=== PATIENT | female | born 1955 | race Caucasian/White ===

== ENCOUNTER 2016-10-07 18:55 | Emergency (ER) | payer SELFPAY ==
[2016-10-02 19:32] VITALS: BP 145/83
--- NOTE | 2016-10-07 20:09 | ED Physician Documentation ---
General Adult - HISTORIAN Historian: patient - HPI Stated Complaint: Past 2 days, chest congestion/sinus drainage/body aches Chief Complaint: General Adult Additional Information: 2 days non-productive cough, rhinorrhea, feverish, body aches. Got flu shot about a week ago. - ROS CONST: fever (feverish) - PAST HX Past History: COPD Allergies/Adverse Reactions: Allergies Allergy/AdvReac Type Severity Reaction Status Date / Time morphine Allergy Severe Anaphylaxis Verified 10/07/16 19:33 Home Medications: Ambulatory Orders Medication Instructions Recorded Ramipril [Altace] 10 mg PO BID 11/24/14 - SOCIAL HX Smoking History: non-smoker, secondhand - FAMILY HX Family History: No - VITAL SIGNS Vital Signs: Vital Signs Temp Pulse Resp BP Pulse Ox 98.2 F 79 20 145/83 97 10/07/16 18:55 10/07/16 18:55 10/07/16 18:55 10/02/16 19:10 10/07/16 18:55 - REVIEWED ASSESSMENTS Nursing Assessment Reviewed: Yes Vitals Reviewed: Yes Progress - Progress Progress: Chest PA and lateral views Clinical history: Cough and congestion with fever A borderline heart shadow. No acute infiltrates or pleural effusion. Normal bony thorax. Impression: Borderline heart shadow No acute infiltrates or pleural effusion Electronically signed on Oct 07, 2016 8:33:31 PM GUIDANCE SERVICES COORDINATOR by: Jese Bain Influenza swab negative ED Results Lab/Radiology - Orders Orders: ED Orders Category Date Time Status CHEST 2 VIEW [CHEST P.A.&LAT 2 VIEWS] [RAD] Stat Exams 10/07/16 Ordered INFLUENZA A&B Stat Lab 10/07/16 19:59 Ordered General Adult Physical Exam - PHYSICAL EXAM GENERAL APPEARANCE: moderate distress EENT: eye inspection normal, ENT inspection normal, pharynx normal, JYOTHI, other (clear rhinorrhea) NECK: normal inspection, supple RESPIRATORY: no resp distress, breath sounds normal CVS: reg rate & rhythm, heart sounds normal ABDOMEN: soft, normal bowel sounds RECTAL: deferred BACK: normal inspection SKIN: warm/dry, normal color EXTREMITIES: normal range of motion, no evidence of injury NEURO: CN's nml as tested, motor nml, sensation nml, cognition normal Discharge Clincal Impression: Bronchitis Referrals: Jese Moreno [Primary Care Provider] - 2 Days Home Medications: Ambulatory Orders Ramipril [Altace] 10 mg PO BID 11/24/14 Condition: Fair Disposition: 01 HOME, SELF-CARE Decision to Admit: NO Decision Time: 21:00
--- NOTE | 2016-10-07 20:41 | Diagnostic Imaging Report ---
[facility] [address] [facility].[address] [address] ~ ~ ~ ~ Report Submission Date: Oct 07, 2016 8:33:31 PM SCRIPT DEVELOPER Patient ~ Study Name: JAN MODI ~ Date: Oct 07, 2016 8:22:11 PM SCRIPT DEVELOPER ~ Modality Type: CR Gender: F ~ Description: CHEST : 53 ~ Institution: [facility] Physician: MARITZA COTTON ~ ~ ~ ~ Chest PA and lateral views Clinical history: Cough and congestion with fever A borderline heart shadow. No acute infiltrates or pleural effusion. Normal bony thorax. Impression: Borderline heart shadow No acute infiltrates or pleural effusion ~ Electronically signed on Oct 07, 2016 8:33:31 PM SCRIPT DEVELOPER by: Jese MEDINA
[2016-10-07] MEDS: AZITHROMYCIN 250 MG TABLET PO ONE (21:05)
[2016-10-07] MEDS: predniSONE 10 MG TABLET PO ONE (21:05)
== END 2016-10-07 21:10 | disposition home or self-care (01) ==
LOC: ED 18:55
DX: J20.9 Acute bronchitis, unspecified (principal)
CPT/HCPCS: 71020; 87400; 99283; J7512

== ENCOUNTER 2016-11-18 16:08 | Emergency (ER) | payer SELFPAY ==
[2016-11-18] MEDS ORDERED: KETOROLAC TROMETHAMINE 60 MG/2 ML VIAL IM ONE (16:27)
--- NOTE | 2016-11-18 16:30 | ED Physician Documentation ---
General Adult - HISTORIAN Historian: patient - HPI Stated Complaint: left hip pain Chief Complaint: General Adult Further Comments: yes (61 year old female patient presents with left hip pain for the past 2 days, denies any fall or injury. States she took Tylenol yesterday but it didn't help.) - ROS CONST: no problems EYES/ENT: none CVS/RESP: none GI/: none MS/SKIN/LYMPH: joint pain (left hip) - PAST HX Past History: COPD, hypertension Allergies/Adverse Reactions: Allergies Allergy/AdvReac Type Severity Reaction Status Date / Time morphine Allergy Severe Anaphylaxis Verified 10/07/16 19:33 Home Medications: Ambulatory Orders Medication Instructions Recorded Unobtainable [Unobtainable] 11/18/16 - SOCIAL HX Smoking History: non-smoker - FAMILY HX Family History: No - VITAL SIGNS Vital Signs: Vital Signs Temp Pulse Resp BP Pulse Ox 98.1 F 80 16 134/85 97 11/18/16 16:10 11/18/16 16:10 11/18/16 16:10 11/18/16 16:10 11/18/16 16:10 - REVIEWED ASSESSMENTS Nursing Assessment Reviewed: Yes Vitals Reviewed: Yes ED Results Lab/Radiology - Orders Orders: ED Orders Category Date Time Status Ketorolac Tromethamine [Toradol] Med 11/18/16 16:27 Once 60 mg IM NOW ONE General Adult Physical Exam - PHYSICAL EXAM GENERAL APPEARANCE: mild distress EENT: eye inspection normal, JYOTHI RESPIRATORY: no resp distress, chest non-tender, breath sounds normal CVS: reg rate & rhythm, heart sounds normal, equal pulses, no murmur, no gallop , PMI nml, no JVD, no friction rub, 24 ABDOMEN: soft, no organomegaly, normal bowel sounds, no abdominal bruit, no distension SKIN: normal color, warm/dry, NR, INT, PAL, DR EXTREMITIES: normal range of motion, no evidence of injury, no edema, other ( left hip pain with palpation, patient states it radiates down the left leg. No shortening or rotation noted. ) NEURO: oriented X3, CN's nml as tested, motor nml, sensation nml, mood/affect nml Discharge Clincal Impression: Sciatica Qualifiers: Laterality: left Qualified Code(s): M54.32 - Sciatica, left side Referrals: Jese Moreno [Primary Care Provider] - 2 Days Home Medications: Ambulatory Orders Unobtainable [Unobtainable] 11/18/16 Condition: Stable Disposition: 01 HOME, SELF-CARE Decision to Admit: NO Decision Time: 16:31
[2016-11-18 16:52] VITALS: BP 134/85
== END 2016-11-18 16:50 | disposition home or self-care (01) ==
LOC: ED 16:08
DX: M54.32 Sciatica, left side (principal)
CPT/HCPCS: 96372; 99283; J1885

== ENCOUNTER 2017-02-04 17:38 | Emergency (ER) | payer OTHER ==
--- NOTE | 2017-02-04 18:16 | ED Physician Documentation ---
General Adult - HISTORIAN Historian: patient, child (son) - HPI Stated Complaint: hip pain Chief Complaint: General Adult Additional Information: Left hip pain for months. Recently had x-rays per Dr. Moreno. Pt's son received letter in mail that said x-rays showed arthritis. When son called Tiffanie's office he was told no doctors in the office and to bring pt to ER. Pain is unchanged. Denies numbness, tingling, loss of bowel or bladder control. - ROS CONST: no problems - PAST HX Past History: hypertension Allergies/Adverse Reactions: Allergies Allergy/AdvReac Type Severity Reaction Status Date / Time morphine Allergy Severe Anaphylaxis Verified 02/04/17 17:57 Home Medications: Ambulatory Orders Medication Instructions Recorded Ramipril [Altace] 10 mg PO BID 11/18/16 predniSONE [Deltasone] 20 mg PO QD #7 tablet 02/04/17 - SOCIAL HX Smoking History: cigarettes - FAMILY HX Family History: No - VITAL SIGNS Vital Signs: Vital Signs Temp Pulse Resp BP Pulse Ox 98.1 F 95 H 16 121/78 99 02/04/17 17:39 02/04/17 17:39 02/04/17 17:39 02/04/17 17:39 02/04/17 17:39 - REVIEWED ASSESSMENTS Nursing Assessment Reviewed: Yes Vitals Reviewed: Yes Progress - Progress Progress: Make an appointment with your provider to see how he would like to treat your arthritis. General Adult Physical Exam - PHYSICAL EXAM GENERAL APPEARANCE: mild distress EENT: eye inspection normal, ENT inspection normal NECK: normal inspection RESPIRATORY: no resp distress BACK: normal inspection SKIN: warm/dry, normal color EXTREMITIES: no evidence of injury, no edema, other (left hip rotation w/o pain) NEURO: CN's nml as tested, motor nml, sensation nml, other (reflexes 2+ throughout. Can plantar and dorsi flex toes against resistance) Discharge Clincal Impression: Sciatica Prescriptions: predniSONE [Deltasone] 20 mg PO QD #7 tablet Home Medications: Ambulatory Orders Ramipril [Altace] 10 mg PO BID 11/18/16 predniSONE [Deltasone] 20 mg PO QD #7 tablet 02/04/17 Condition: Good Disposition: 01 HOME, SELF-CARE Decision to Admit: NO Decision Time: 18:14
[2017-02-04 18:19] VITALS: BP 120/80
== END 2017-02-04 18:14 | disposition home or self-care (01) ==
LOC: ED 17:38
DX: M54.32 Sciatica, left side (principal)
CPT/HCPCS: 99283

== ENCOUNTER 2017-02-10 18:34 | Emergency (ER) | payer OTHER ==
[2017-02-10] MEDS: ORPHENADRINE CITRATE 60 MG/2ML IM ONE (19:58)
[2017-02-10] MEDS: KETOROLAC TROMETHAMINE 60 MG/2 ML VIAL IM ONE (19:59)
[2017-02-10 20:32] VITALS: BP 134/72
[2017-02-11 05:51] LABS: APPEARANCE,URINE CLEAR (CLEAR); COLOR,URINE YELLOW (YELLOW); OCCULT BLOOD,URINE NEGATIVE (NEGATIVE); UROBILINOGEN URINE 0.2 Eu (0.2-1.0)
--- NOTE | 2017-02-11 12:24 | ED Physician Documentation ---
Headache - HISTORIAN Historian: patient - HPI Stated Complaint: headache Chief Complaint: Headache Additional Information: rush and increased freq of urination Onset: hours Timing: still present New Gradual Onset: No Exposure To: none Severity: moderate Quality: similar to previous, other (whole head) Associated Symptoms: denies: problems with vision, sensitivity to light, nausea , vomiting, speech problems Preceding Symptoms: denies: visual disturbance Further Comments: no Last known Well Code/Unknown Code: Unknown - ROS NEURO/PSYCH: denies: confusion, anxiety, depression, fainting EYES/ENT: denies: sore throat, difficulty swallowing, sinus pain, drainage CVS/RESP: none GI/: problems urinating (burning). denies: abdominal pain, diarrhea, incontinence MS/SKIN/LYMPH: denies: muscle aches, back pain, rash, skin lesions, swollen glands all systems neg except as marked: Yes - PAST HX Medical History: hypertension Surgical History: no surgical history Immunizations: referred to PCP Allergies/Adverse Reactions: Allergies Allergy/AdvReac Type Severity Reaction Status Date / Time morphine Allergy Severe Anaphylaxis Verified 02/10/17 19:05 Home Medications: Ambulatory Orders Medication Instructions Recorded Ramipril [Altace] 10 mg PO BID 11/18/16 - SOCIAL HX Smoking History: cigarettes Alcohol Use: none - Family HX Family History: none - VITAL SIGNS Vital Signs: Vital Signs Temp Pulse Resp BP Pulse Ox 98.4 F 76 18 134/72 97 02/10/17 20:31 02/10/17 20:31 02/10/17 20:31 02/10/17 20:31 02/10/17 20:31 - REVIEWED ASSESSMENTS Nursing Assessment Reviewed: Yes Vitals Reviewed: Yes Progress - Results/Orders Results/Orders: no testing ordered - Progress Progress: pt. given 60 mg toradol and 60 mg norflex im in er Critical Care Note - Critical Care Note Total Time (mins): 0 ED Results Lab/Radiology - Lab Results Lab Results: Lab Results 02/10/17 19:50 Urine Color Yellow (YELLOW) Urine Appearance Clear (CLEAR) Urine pH 7.0 (5.0 - 8.0) Ur Specific He[place]rick 1.010 (1.010-1.030) Urine Protein Negative mg/dL mg/dL (NEGATIVE) Urine Ketones Negative mg/dL mg/dL (NEGATIVE) Urine Occult Blood Negative (NEGATIVE) Urine Nitrite Negative (NEGATIVE) Urine Bilirubin Negative (NEGATIVE) Urine Urobilinogen 0.2 Eu Eu (0.2-1.0) Ur Leukocyte Esterase Negative (NEGATIVE) Urine Glucose Trace mg/dL mg/dL (NEGATIVE) - Radiology Radiology Impressions: no x-rays ordered - Orders Orders: ED Orders Category Date Time Status UA MACRO DIP ONLY Routine Lab 02/10/17 19:50 Completed Ketorolac Tromethamine [Toradol] Med 02/10/17 19:52 Discontinued 60 mg IM NOW ONE Orphenadrine Citrate [Norflex] Med 02/10/17 19:52 Discontinued 60 mg IM NOW ONE Headache Physical Exam - EXAM General Appearance: alert, mild distress EENT: no facial swelling, eyes nml inspection, PERRL, unequal pupils, nml ENT. No: tender temporal artery, pain over sinuses, photophobia Neck: normal inspection, thyroid normal, supple Respiratory: no resp distress, chest non-tender, breath sounds normal CVS: reg. rate & rhythm, heart sounds nml. No: murmur, tachycardia, bradycardia , decreased pulse(s) Abdomen: non-tender, no organomegaly, nml bowel sounds Skin: color nml, no rash Extremitites: non-tender, normal range of motion, no evidence of injury, no edema - NEURO/PSYCH Higher Functions: alert, oriented x3 Cranial: nml as tested, no evidence of acute CVA Cerebellar: nml as tested Sensorimotor: motor nml, sensation nml Discharge Clincal Impression: Tension headache Diabetes Qualifiers: Diabetes mellitus type: type 2 Diabetes mellitus complication status: with unspecified complications Diabetes mellitus long chain beamer insulin use: without [place] [facility] use Qualified Code(s): E11.8 - Type 2 diabetes mellitus with unspecified complications Referrals: Jese Moreno [Primary Care Provider] - 2 Days Home Medications: Ambulatory Orders Ramipril [Altace] 10 mg PO BID 11/18/16 Comments: discharged with scripts for parafon forte, meloxicam and recommendation to follow up with primary care for better diabetes control Condition: Stable Disposition: 01 HOME, SELF-CARE Decision to Admit: NO Decision Time: 20:25
== END 2017-02-10 20:12 | disposition home or self-care (01) ==
LOC: ED 18:34
DX: R51 Headache (principal); E11.8 Type 2 diabetes mellitus with unspecified complications
CPT/HCPCS: 81002; J1885; J2360; 96372; 99283

== ENCOUNTER 2017-03-16 09:45 | Emergency (ER) | payer OTHER ==
[2017-03-16] MEDS ORDERED: IPRATROPIUM/ALBUTEROL SULFATE 3 ML AMPUL.NEB NEB ONE ×4 (09:51→10:27)
[2017-03-16] MEDS ORDERED: methylPREDNISolone SOD SUCC 125 MG/2 ML VIAL ONE (10:22)
[2017-03-16] MEDS ORDERED: methylPREDNISolone SOD SUCC 125 MG/2 ML VIAL IVP ONE (10:28)
[2017-03-16] MEDS ORDERED: ASPIRIN 81 MG CHEW TAB PO ONE (10:48)
[2017-03-16 10:59] LABS: BASOPHILS % 0.7 (0.0-1.5); EOSINOPHILS % 7.3 % (0.0-6.8); MEAN CORPUSCULAR HEMOGLOBIN 29.9 pg (28.0-34.0); MEAN CORPUSCULAR VOLUME 90.5 fl (80.0-100.0); NEUTROPHILS # 3.2 # k/uL (1.4-7.7)
[2017-03-16 11:11] LABS: eGFR (African) > 60; eGFR (Non-African) > 60
--- NOTE | 2017-03-16 12:25 | ED Physician Documentation ---
Chest Pain - HISTORIAN Historian: patient, child - HPI Stated Complaint: chest pain and shortness of breath Chief Complaint: Chest Pain Additional Information: pt here w/son c/o sob and chest discomfort onset on arising this am. had recent card w/u at [facility] found ok. Timing: sudden onset Duration: waxing, waning Last known Well Date: 03/14/17 Last Known Well Time: 18:30 Severity: moderate Quality: pressure, other (sob and wheezing) Chest Pain Radiation: no radiation Chest Pain Signs/Symptoms: dyspnea. denies: nausea, vomiting, diaphoresis, cool extremities Worsened By: exertion - ROS CONST: no problems GI/: none EYES/ENT: none SKIN/ENDO: none NEURO/PSYCH: none - PAST HX MA risk factors: hypertension, other (copd hi cholesterol) Neuro deficit: none GI disease: none Surgeries/Procedures: none Allergies/Adverse Reactions: Allergies Allergy/AdvReac Type Severity Reaction Status Date / Time morphine Allergy Severe Anaphylaxis Verified 03/16/17 10:15 Home Medications: Ambulatory Orders Medication Instructions Recorded Ramipril [Altace] 10 mg PO BID 11/18/16 - SOCIAL HX Smoking History: non-smoker (lived w/ cigarette smoke long time) Alcohol Use: none Drug Use: none - FAMILY HX Family HX: none - VITAL SIGNS Vital Signs: Vital Signs Temp Pulse Resp BP Pulse Ox 134/72 02/10/17 20:31 - REVIEWED ASSESSMENTS Nursing Assessment Reviewed: Yes Vitals Reviewed: Yes ED Results Lab/Radiology - Radiology Radiology Impressions: POSS RLL CONGESTION-RAD SAYS INFILTRATE - Orders Orders: ED Orders Category Date Time Status Ipratropium/Albuterol Sulfate [Duoneb] Med 03/16/17 09:51 Discontinued 3 ml NEB .STK-MED ONE Ipratropium/Albuterol Sulfate [Duoneb] Med 03/16/17 10:22 Discontinued 3 ml NEB .STK-MED ONE Ipratropium/Albuterol Sulfate [Duoneb] Med 03/16/17 10:27 Once 3 ml NEB NOW ONE Ipratropium/Albuterol Sulfate [Duoneb] Med 03/16/17 10:27 Once 3 ml NEB NOW ONE methylPREDNISolone SOD SUCC [Solu-MEDROL] Med 03/16/17 10:22 Discontinued 125 mg .ROUTE .STK-MED ONE methylPREDNISolone SOD SUCC [Solu-MEDROL] Med 03/16/17 10:28 Once 125 mg IVP NOW ONE Chest Pain Physical Exam - EXAM General Appearance: mild distress, moderate distress EENT: eye inspection normal Neck: nml inspection, no carotid bruit Respiratory: No: no resp. distress (mild sig wheezing) CVS: reg. rate & rhythm, no murmur, no gallop, no friction rub Abdomen: soft, non-tender Skin: warm/dry, normal color. No: cyanosis, diaphoresis, jaundice Extremities: non-tender, normal range of motion, no evidence of injury Neuro: oriented X3, motor nml, sensation nml, mood/affect nml Discharge Clincal Impression: Right lower lobe pneumonia, ASSOC COPD Referrals: Jese Moreno [Primary Care Provider] - 2 Days Home Medications: Ambulatory Orders Ramipril [Altace] 10 mg PO BID 11/18/16 Comments: TO F/U W/PCP SAMIRA KIM Condition: Good Disposition: 01 HOME, SELF-CARE Decision to Admit: NO Decision Time: 12:24
[2017-03-16 12:59] VITALS: BP 161/90
--- NOTE | 2017-03-16 20:52 | Diagnostic Imaging Report ---
MARGY GUERRERO [facility] [address] [facility].[address] [address] Report Submission Date: Mar 16, 2017 11:37:13 AM CDT Patient Study Name: JAN MODI Date: Mar 16, 2017 11:20:07 AM CDT Modality Type: CR Gender: F Description: CHEST : 53 Institution: [facility] Physician: MARGY GUERRERO Chest - two views Clinical history: Chest pain and shortness of breath this morning. Findings: Examination of the chest in PA and lateral views with comparison to examination of 10/07/2016 demonstrates again slight elevation right hemidiaphragm. There is patchy right basilar infiltrate medially. The left lung is clear. Cardiovascular and mediastinal silhouettes are stable. The aorta is atherosclerotic. Impression: 1. Elevated right hemidiaphragm with right basilar infiltrate in the medial base. Follow-up to resolution is recommended. 2. Aortic atherosclerosis. Electronically signed on Mar 16, 2017 11:37:13 AM CDT by: Vijay MEDINA
== END 2017-03-16 12:56 | disposition home or self-care (01) ==
LOC: ED 09:45
DX: J18.9 Pneumonia, unspecified organism (principal); J44.1 Chronic obstructive pulmonary disease with (acute) exacerbation
CPT/HCPCS: 36415; 71020; 80053; 84484; 85025; 87040; 93005; J2930; 96374; 99283; 99284; S1016

== ENCOUNTER 2017-03-16 17:26 | Emergency (ER) | payer OTHER ==
--- NOTE | 2017-03-16 19:39 | ED Physician Documentation ---
Dyspnea - HISTORIAN Historian: patient, child - HPI Chief Complaint: Dyspnea Additional Information: re adm ed today inc dyspnea tachycardia and tachypnea w/ant/post chest pain Onset: other (on awakening this am slight yesterday) Duration: continues in ED, worse (from this am w/tachycardia and tachypnea), other Initiating Event: upper respiratory illness, exposure to smoke (excess cigarette smoke) Severity: moderate, severe Exacerbated By: change in position, exertion, coughing Associated Symptoms: chest pain, chest discomfort, heart racing. denies: bloody cough, productive cough - ROS CONST: no problems GI/: none MS/SKIN/LYMPH: none - PAST HX Lung Disease: COPD, other (htn hi chol) PE Risk Factors: hypertension Surgeries/Procedures: none Allergies/Adverse Reactions: Allergies Allergy/AdvReac Type Severity Reaction Status Date / Time morphine Allergy Severe Anaphylaxis Verified 03/16/17 12:53 Home Medications: Ambulatory Orders Medication Instructions Recorded Ramipril [Altace] 10 mg PO BID 11/18/16 Azithromycin 500 mg PO D #5 tablet 03/16/17 - SOCIAL HX Smoking History: non-smoker Alcohol Use: none Drug Use: none - FAMILY HX Family History: no significant history - VITAL SIGNS Vital Signs: Vital Signs Temp Pulse Resp BP Pulse Ox 161/90 03/16/17 12:56 ED Results Lab/Radiology - Radiology Radiology Impressions: ct reveals bronchitis other lab ok pt noble her azithro but has not taken any yet. will give her one now send home - Orders Orders: ED Orders Category Date Time Status CT CHEST W & W/O CONTRAST Stat Exams 03/16/17 Ordered ARTERIAL BLOOD GAS Stat Lab 03/16/17 Uncollected EKG WITH COMPARISON Stat Ther 03/16/17 Ordered Dyspnea Physical Exam - EXAM General Appearance: moderate distress EENT: eye inspection normal Respiratory: wheezes, no pleuritic chest pain Abdomen: non-tender, no distention Skin: cyanosis (very slight) Extremities: non-tender, normal range of motion Neuro/Psych: oriented x3, motor nml, sensation nml, mood/affect nml Discharge Clincal Impression: acute bronchiotis, anxiety Referrals: Jese Moreno [Primary Care Provider] - 2 Days Home Medications: Ambulatory Orders Ramipril [Altace] 10 mg PO BID 11/18/16 Azithromycin 500 mg PO D #5 tablet 03/16/17 Comments: pt sig better admits has not yet taken her azithro--will give here have her f/u w;/pcp or rt ed Condition: Good Disposition: 01 HOME, SELF-CARE Decision to Admit: NO Decision Time: 19:38
[2017-03-16] MEDS ORDERED: AZITHROMYCIN 250 MG TABLET PO ONE (19:54)
[2017-03-16] MEDS: AZITHROMYCIN 250 MG TABLET PO ONE (19:55)
[2017-03-16 20:07] VITALS: BP 161/84
--- NOTE | 2017-03-16 20:39 | Diagnostic Imaging Report ---
MARGY GUERRERO [facility] [address] [facility] [address] [address] Report Submission Date: Mar 16, 2017 7:29:59 PM CDT Patient Study Name: JAN MODI Date: Mar 16, 2017 7:02:43 PM CDT Modality Type: CT\SR Gender: F Description: CT ANGIOGRAPHY CHEST 7 : 53 Institution: [facility] Physician: MARGY GUERRERO Computed tomography of the chest with contrast History: Chest pain and shortness of breath Findings: Transverse chest sections are obtained after 92 mL intravenous omnipaque 350 from which multiplanar reformatted images are obtained. Marked hepatic steatosis, calcified splenic and chest granulomas, marked gallbladder contraction, mild atherosclerotic calcification and obesity are observed. There is no evidence of acute pulmonary embolism. Minimal bibasilar atelectasis is present. There is no confluent infiltrate or pleural effusion. Minimal bilateral predominately basilar bronchial wall thickening may represent mild bronchitis. This is associated with air trapping. Impression: 1. Mild air trapping and bibasilar bronchitis. 2. No evidence of acute pulmonary embolism. 3. Obesity and marked hepatic steatosis. 4. Mild atherosclerosis, old granulomatous disease, and minimal bibasilar atelectasis. Electronically signed on Mar 16, 2017 7:29:59 PM CDT by: Jossue MEDINA
== END 2017-03-16 19:55 | disposition home or self-care (01) ==
LOC: ED 17:26
DX: J21.9 Acute bronchiolitis, unspecified (principal); F41.9 Anxiety disorder, unspecified
CPT/HCPCS: 71275; Q9966; 99283; S1016

== ENCOUNTER 2017-04-11 21:20 | Emergency (ER) | payer OTHER ==
[2017-04-11 21:35] VITALS: BP 136/84
[2017-04-11] MEDS ORDERED: ACETAMINOPHEN 500 MG TABLET PO ONE (21:35)
--- NOTE | 2017-04-11 21:44 | ED Physician Documentation ---
Headache - HISTORIAN Historian: patient - HPI Stated Complaint: HBP Chief Complaint: Headache Onset: hours Timing: still present New Gradual Onset: No Exposure To: none Severity: moderate Quality: pain Associated Symptoms: dizziness. denies: fever, chills, sweating, problems with vision, sensitivity to light, nausea, vomiting, neck pain, stiffness, speech problems, weakness, trouble walking, tingling, numbness, light-headedness, other Preceding Symptoms: denies: visual disturbance Further Comments: yes (61 year old female patient presents with complaint of headache and high BP. Patient reports taking ibuprofen this afternoon with no improvement. Patient was in the ER earlier today with her . States she did not have a headache at that time. Denies nausea, photophobia, fever or CP. C/O dizziness.) - ROS NEURO/PSYCH: denies: confusion, anxiety, depression, fainting, other EYES/ENT: denies: sore throat, difficulty swallowing, sinus pain, drainage, other CVS/RESP: none GI/: denies: abdominal pain, diarrhea, problems urinating, incontinence, other MS/SKIN/LYMPH: denies: muscle aches, back pain, rash, skin lesions, swollen glands, other all systems neg except as marked: Yes - PAST HX Medical History: hypertension Allergies/Adverse Reactions: Allergies Allergy/AdvReac Type Severity Reaction Status Date / Time morphine Allergy Severe Anaphylaxis Verified 03/16/17 12:53 Home Medications: Ambulatory Orders Medication Instructions Recorded Ramipril [Altace] 10 mg PO BID 11/18/16 Ibuprofen [Advil] 800 mg PO TID 04/11/17 - SOCIAL HX Smoking History: cigarettes - Family HX Family History: denies: none - VITAL SIGNS Vital Signs: Vital Signs Temp Pulse Resp BP Pulse Ox 98.9 F 92 H 16 136/84 98 04/11/17 21:23 04/11/17 21:23 04/11/17 21:23 04/11/17 21:23 04/11/17 21:23 - REVIEWED ASSESSMENTS Nursing Assessment Reviewed: Yes Vitals Reviewed: Yes ED Results Lab/Radiology - Orders Orders: ED Orders Category Date Time Status Acetaminophen [Tylenol Extra Strength] Med 04/11/17 21:35 Once 1,000 mg PO NOW ONE Headache Physical Exam - EXAM General Appearance: no acute distress, alert, other (very poor personal hygiene) Respiratory: no resp distress, chest non-tender, breath sounds normal CVS: reg. rate & rhythm, heart sounds nml Abdomen: non-tender, no organomegaly, nml bowel sounds, no distention Skin: color nml, no rash, warm, nml palp., dry Extremitites: non-tender, normal range of motion, no evidence of injury, no edema, J, PROCESSING TECHNOLOGIST - NEURO/PSYCH Higher Functions: alert, oriented x3, nml speech, mood/affect nml Discharge Clincal Impression: Tension headache Referrals: Jese Moreno [Primary Care Provider] - 2 Days Home Medications: Ambulatory Orders Ramipril [Altace] 10 mg PO BID 11/18/16 Ibuprofen [Advil] 800 mg PO TID 04/11/17 Condition: Stable Disposition: 01 HOME, SELF-CARE Decision to Admit: NO Decision Time: 21:43
== END 2017-04-11 21:39 | disposition home or self-care (01) ==
LOC: ED 21:20
DX: G44.209 Tension-type headache, unspecified, not intractable (principal)
CPT/HCPCS: 99283

== ENCOUNTER 2017-04-29 15:27 | Emergency (ER) | payer OTHER ==
[2017-04-29 17:39] LABS: BASOPHILS % 0.2 (0.0-1.5); EOSINOPHILS % 0.4 % (0.0-6.8); MEAN CORPUSCULAR HEMOGLOBIN 30.1 pg (28.0-34.0); MONOCYTES % 1.7 % (0.0-11.0)
[2017-04-29 17:57] LABS: eGFR (African) > 60; eGFR (Non-African) > 60
--- NOTE | 2017-04-29 19:13 | Diagnostic Imaging Report ---
ANTONY BOSWELL [facility] [address] [facility]. [address] [place], [place]. [address] Report Submission Date: Apr 29, 2017 6:17:58 PM CDT Patient Study Name: JAN MODI Date: Apr 29, 2017 5:52:14 PM CDT Modality Type: CR Gender: F Description: CHEST : 53 Institution: [facility] Physician: ANTONY BOSWELL Chest -one view CLINICAL HISTORY: Fever. FINDINGS: Examination of the chest single PA view with comparison to examination 2016 demonstrates cardiomegaly and aortic atherosclerosis. Monitor leads superimpose the chest. Bony thorax is intact. Lungs are free of coalescent infiltrate. IMPRESSION: Cardiomegaly and aortic atherosclerosis. No active disease. Electronically signed on Apr 29, 2017 6:17:58 PM CDT by: Vijay MEDINA
--- NOTE | 2017-04-29 19:15 | Diagnostic Imaging Report ---
ANTONY BOSWELL [facility] [address] [facility].[address] [address] Report Submission Date: Apr 29, 2017 6:16:50 PM CDT Patient Study Name: JAN MODI Date: Apr 29, 2017 5:41:39 PM CDT Modality Type: CR Gender: F Description: SPINE : 53 Institution: [facility] Physician: ANTONY BOSWELL Cervical spine -three views CLINICAL HISTORY: Numbness in the hands. FINDINGS: Examination of the lumbar spine in AP, lateral, lateral swimmer's and open- mouth views demonstrates straightening of the normal cervical lordosis. Disc spaces are narrowed at C4-5, C5-6 and C6-7 with anterior and posterior osteophytes consistent with degenerative disc disease. Prevertebral soft tissues are within normal limits. The C1-2 articulation is normal and the base the odontoid is intact. IMPRESSION: Multilevel spondylosis. No fracture. Electronically signed on Apr 29, 2017 6:16:50 PM CDT by: Vijay MEDINA
--- NOTE | 2017-04-29 19:15 | Diagnostic Imaging Report ---
ANTONY BOSWELL [facility] [address] [facility].[address] [address] Report Submission Date: Apr 29, 2017 6:15:43 PM CDT Patient Study Name: JAN MODI Date: Apr 29, 2017 5:31:08 PM CDT Modality Type: CR Gender: F Description: SPINE : 53 Institution: [facility] Physician: ANTONY BOSWELL Lumbar spine -three views CLINICAL HISTORY: Low back pain with leg numbness. FINDINGS: Examination of the lumbar spine in AP, lateral and lateral coned-down views demonstrates mild levoscoliosis with the apex at L2. The pedicles are intact and paravertebral soft tissues are within normal limits. Facet joints are narrowed in the mid and lower lumbar vertebrae. There is no evident fracture. Vascular calcification is incidentally noted in the abdominal aorta. IMPRESSION: Lumbar spondylosis and scoliosis. No fracture. Electronically signed on Apr 29, 2017 6:15:43 PM CDT by: Vijay MEDINA
[2017-04-29] MEDS: Lidocaine 1% 5ml(IM or SUTURE)(PAIN CLINIC) IJ ONE (19:20)
[2017-04-29] MEDS: cefTRIAXone SODIUM 1 GM VIAL IM ONE (19:20)
--- NOTE | 2017-04-29 19:21 | ED Physician Documentation ---
General Adult - HISTORIAN Historian: patient - HPI Stated Complaint: Numbness to bilateral hands and legs Chief Complaint: General Adult Additional Information: numbness hands and feet Onset: hours (8) Timing: still present Severity: moderate Modifying Factors: none Context: woke up this way Quality: moderate Location: hands and feet Further Comments: no Last known Well Date: 04/28/17 Last Known Well Time: 23:55 Last known Well Code/Unknown Code: Unknown - ROS CONST: no problems EYES/ENT: none CVS/RESP: none GI/: none MS/SKIN/LYMPH: none NEURO/PSYCH: denies: headache, fainting, dizziness, tingling, numbness, difficulty walking, difficulty with speech, anxiety, depression - PAST HX Past History: hypertension Other History: none Surgeries/Procedures: none Immunizations: referred to PCP Allergies/Adverse Reactions: Allergies Allergy/AdvReac Type Severity Reaction Status Date / Time morphine Allergy Severe Anaphylaxis Verified 04/29/17 17:45 Home Medications: Ambulatory Orders Medication Instructions Recorded Ramipril [Altace] 10 mg PO BID 11/18/16 Ibuprofen [Advil] 800 mg PO TID 04/11/17 - SOCIAL HX Smoking History: cigarettes Alcohol Use: none Drug Use: none - FAMILY HX Family History: No - VITAL SIGNS Vital Signs: Vital Signs Temp Pulse Resp BP Pulse Ox 99.8 F H 99 H 20 131/57 97 04/29/17 15:28 04/29/17 15:28 04/29/17 15:28 04/29/17 15:28 04/29/17 15:28 - REVIEWED ASSESSMENTS Nursing Assessment Reviewed: Yes Vitals Reviewed: Yes Progress - Results/Orders Results/Orders: cbc, cmp, ua, cxr, blood culturesd, c-spine and l-spine x-rays ordered - Progress Progress: pt. given 1 gram rocephin im in er Critical Care Note - Critical Care Note Total Time (mins): 0 ED Results Lab/Radiology - Lab Results Lab Results: Lab Results 04/29/17 04/29/17 17:20 17:20 WBC 8.10 K/ul K/ul (4.00-12.00) RBC 4.72 M/ul M/ul (3.90-5.20) Hgb 14.2 g/dL g/dL (12.0-16.0) Hct 42.5 % % (34.5-46.5) MCV 90.0 fl fl (80.0-100.0) MCH 30.1 pg pg (28.0-34.0) MCHC 33.4 g/dL g/dL (30.0-36.0) RDW 13.2 % % (11.3-14.3) Plt Count 258 K/mm3 K/mm3 (130-400) Neut % (Auto) 86.4 % H % (39.0-79.0) Lymph % (Auto) 10.8 % L % (16.0-50.0) Cotton % (Auto) 1.7 % % (0.0-11.0) Eos % (Auto) 0.4 % % (0.0-6.8) Baso % (Auto) 0.2 (0.0-1.5) Neut # (Auto) 7.0 # k/uL # k/uL (1.4-7.7) Lymph # (Auto) 0.9 # k/uL # k/uL (0.6-4.0) [place] # (Auto) 0.1 # k/uL # k/uL (0.0-0.9) Eos # (Auto) 0.0 # k/uL # k/uL (0.0-0.6) Baso # (Auto) 0.0 # k/uL # k/uL (0.0-0.5) Reactive Lymphs % 0.6 % % (0.0-5.0) Reactive Lymphs # 0.0 # k/uL # k/uL (0.0-0.8) Sodium 138 mmol/L mmol/L (136-145) Potassium 4.0 mmol/L mmol/L (3.5-5.0) Chloride 104 mmol/L mmol/L (98-110) Carbon Dioxide 28 mmol/L mmol/L (20-32) BUN 12 mg/dL mg/dL (10-26) Creatinine 0.8 mg/dL mg/dL (0.4-1.5) Estimated Creat Clear 138 Est GFR ( Amer) > 60 (60 - ) Est GFR (Non-Af Amer) > 60 (60 - ) Glucose 127 mg/dL H mg/dL (70-99) Calcium 9.5 mg/dL mg/dL (8.5-10.5) Total Bilirubin 0.3 mg/dL mg/dL (0.2-1.2) AST 25 U/L U/L (0-41) ALT 24 U/L U/L (0-45) Alkaline Phosphatase 76 U/L U/L (46-116) Total Protein 7.5 g/dL g/dL (6.0-8.5) Albumin 4.5 g/dL g/dL (3.0-5.5) - Radiology Radiology Impressions: cxr neg, c-spine shows ddd, l-spine shows ddd - Orders Orders: ED Orders Category Date Time Status Place IV Lock 1T Care 04/29/17 16:13 Active C SPINE 2 OR 3 VIEWS [RAD] Stat Exams 04/29/17 Completed CHEST 1 VIEW [RAD] Routine Exams 04/29/17 Completed L SPINE 2 OR 3 VIEWS [RAD] Stat Exams 04/29/17 Completed BLOOD CULTURE Routine Lab 04/29/17 17:25 Received CBC/PLATELET/DIFF Routine Lab 04/29/17 17:20 Completed CMP Routine Lab 04/29/17 17:20 Completed URINALYSIS Routine Lab 04/29/17 16:06 Ordered Lidocaine 1% 5ml(IM or SUTURE) [Xylocaine] Med 04/29/17 19:03 Discontinued 50 mg IJ NOW ONE cefTRIAXone SODIUM [Rocephin] Med 04/29/17 19:03 Discontinued 1 gm IM NOW ONE General Adult Physical Exam - PHYSICAL EXAM GENERAL APPEARANCE: mild distress EENT: eye inspection normal, ENT inspection normal, pharynx normal, no signs of dehydration, JYOTHI, no nystagmus, TM's nml NECK: normal inspection, thyroid normal, supple RESPIRATORY: no resp distress, chest non-tender CVS: reg rate & rhythm, heart sounds normal, equal pulses, no murmur, no gallop ABDOMEN: soft, no organomegaly, normal bowel sounds, no distension, tenderness ( suprapubic area) BACK: CVA tenderness (L) SKIN: warm/dry, normal color EXTREMITIES: non-tender, normal range of motion NEURO: oriented X3, CN's nml as tested, motor nml, sensation nml, mood/affect nml, cognition normal Discharge Clincal Impression: Urinary tract infection Qualifiers: Urinary tract infection type: acute cystitis Hematuria presence: without hematuria Qualified Code(s): N30.00 - Acute cystitis without hematuria Referrals: Jese Moreno [Primary Care Provider] - 2 Days Home Medications: Ambulatory Orders Ramipril [Altace] 10 mg PO BID 11/18/16 Ibuprofen [Advil] 800 mg PO TID 04/11/17 Comments: Discharged in stable condition with Bactrim DS 1 p.o. bid #14 script. Condition: Stable Disposition: 01 HOME, SELF-CARE Decision to Admit: NO Decision Time: 19:20
[2017-04-29 20:07] VITALS: BP 132/93
[2017-04-30 05:44] LABS: APPEARANCE,URINE CLEAR (CLEAR); COLOR,URINE YELLOW (YELLOW); OCCULT BLOOD,URINE NEGATIVE (NEGATIVE); PH URINE 7.5 (5.0 - 8.0); UROBILINOGEN URINE 0.2 Eu (0.2-1.0)
== END 2017-04-29 19:30 | disposition home or self-care (01) ==
LOC: ED 15:27
DX: N30.00 Acute cystitis without hematuria (principal)
CPT/HCPCS: 36415; 71010; 72040; 72100; 80053; 81002; 85025; 87040; J0696; 96372; 99283; S1016

== ENCOUNTER 2017-05-13 20:02 | Emergency (ER) | payer OTHER ==
[2017-05-13] MEDS ORDERED: 0.9 % SODIUM CHLORIDE 1,000 ML IV ONE (21:27)
[2017-05-13] MEDS: KETOROLAC TROMETHAMINE 30 MG/1ML VIAL IVP ONE (21:32)
[2017-05-13] MEDS: IPRATROPIUM/ALBUTEROL SULFATE 3 ML AMPUL.NEB NEB ONE (21:32)
[2017-05-13] MEDS: 0.9 % SODIUM CHLORIDE 1,000 ML IV SCH (21:33)
[2017-05-13] MEDS: BUDESONIDE 0.5MG/2ML AMPUL.NEB NEB SCH (22:25)
[2017-05-13 22:37] LABS: MEAN CORPUSCULAR HEMOGLOBIN 29.7 pg (28.0-34.0); MEAN CORPUSCULAR VOLUME 91.6 fl (80.0-100.0); MONOCYTES % 6.4 % (0.0-11.0)
[2017-05-13 22:38] LABS: BASOPHILS % 0.3 (0.0-1.5); EOSINOPHILS % 2.4 % (0.0-6.8); NEUTROPHILS # 5.7 # k/uL (1.4-7.7)
[2017-05-13] MEDS ORDERED: BUDESONIDE 0.5MG/2ML AMPUL.NEB NEB ONE (22:42)
--- NOTE | 2017-05-13 22:53 | ED Physician Documentation ---
Headache - HISTORIAN Historian: patient - HPI Stated Complaint: headache, HBP concerns Chief Complaint: Headache Additional Information: lips dry, headache, ? high bp Onset: hours (3) Timing: abrupt New Gradual Onset: Yes Exposure To: none Severity: moderate Quality: pain (forehead) Associated Symptoms: denies: fever, chills, sweating, problems with vision, sensitivity to light, nausea, vomiting, neck pain, stiffness, speech problems, weakness, trouble walking, tingling, numbness, dizziness, light-headedness Preceding Symptoms: denies: visual disturbance, scotoma Exacerbated By: denies: light, noise Further Comments: no - ROS NEURO/PSYCH: denies: confusion, anxiety, depression, fainting EYES/ENT: denies: sore throat, difficulty swallowing, sinus pain, drainage CVS/RESP: none GI/: denies: abdominal pain, diarrhea, problems urinating, incontinence MS/SKIN/LYMPH: denies: muscle aches, back pain, rash, skin lesions, swollen glands all systems neg except as marked: Yes - PAST HX Medical History: hypertension Surgical History: no surgical history Immunizations: referred to PCP Allergies/Adverse Reactions: Allergies Allergy/AdvReac Type Severity Reaction Status Date / Time morphine Allergy Severe Anaphylaxis Verified 04/29/17 17:45 Home Medications: Ambulatory Orders Medication Instructions Recorded Ramipril [Altace] 10 mg PO BID 11/18/16 Ibuprofen [Advil] 800 mg PO TID 04/11/17 - SOCIAL HX Smoking History: non-smoker Alcohol Use: none Drug Use: none - Family HX Family History: none - VITAL SIGNS Vital Signs: Vital Signs Temp Pulse Resp BP Pulse Ox 97.5 F L 86 16 132/88 99 05/13/17 23:00 05/13/17 23:00 05/13/17 23:00 05/13/17 23:00 05/13/17 23:00 - REVIEWED ASSESSMENTS Nursing Assessment Reviewed: Yes Vitals Reviewed: Yes Progress - Results/Orders Results/Orders: cbc, cmp, ua ordered in er - Progress Progress: pt. tx with 1 liter ns, 30 mg ketoralac iv in er with improved symptoms Critical Care Note - Critical Care Note Total Time (mins): 0 ED Results Lab/Radiology - Lab Results Lab Results: Lab Results 05/13/17 05/13/17 22:25 22:25 WBC 9.63 K/ul K/ul (4.00-12.00) RBC 4.73 M/ul M/ul (3.90-5.20) Hgb 14.1 g/dL g/dL (12.0-16.0) Hct 43.4 % % (34.5-46.5) MCV 91.6 fl fl (80.0-100.0) MCH 29.7 pg pg (28.0-34.0) MCHC 32.4 g/dL g/dL (30.0-36.0) RDW 13.0 % % (11.3-14.3) Plt Count 203 K/mm3 K/mm3 (130-400) Neut % (Auto) 59.1 % % (39.0-79.0) Lymph % (Auto) 30.1 % % (16.0-50.0) [place] % (Auto) 6.4 % % (0.0-11.0) Eos % (Auto) 2.4 % % (0.0-6.8) Baso % (Auto) 0.3 (0.0-1.5) Neut # (Auto) 5.7 # k/uL # k/uL (1.4-7.7) Lymph # (Auto) 2.9 # k/uL # k/uL (0.6-4.0) [place] # (Auto) 0.6 # k/uL # k/uL (0.0-0.9) Eos # (Auto) 0.2 # k/uL # k/uL (0.0-0.6) Baso # (Auto) 0.0 # k/uL # k/uL (0.0-0.5) Reactive Lymphs % 1.7 % % (0.0-5.0) Reactive Lymphs # 0.2 # k/uL # k/uL (0.0-0.8) Sodium 135 mmol/L L mmol/L (136-145) Potassium 5.6 mmol/L H mmol/L (3.5-5.0) Chloride 106 mmol/L mmol/L (98-110) Carbon Dioxide 21 mmol/L mmol/L (20-32) BUN 5 mg/dL L mg/dL (10-26) Creatinine 0.7 mg/dL mg/dL (0.4-1.5) Estimated Creat Clear 154 Est GFR ( Amer) > 60 (60 - ) Est GFR (Non-Af Amer) > 60 (60 - ) Glucose 88 mg/dL mg/dL (70-99) Calcium 9.4 mg/dL mg/dL (8.5-10.5) Total Bilirubin 0.3 mg/dL mg/dL (0.2-1.2) AST 27 U/L U/L (0-41) ALT 22 U/L U/L (0-45) Alkaline Phosphatase 86 U/L U/L (46-116) Total Protein 6.9 g/dL g/dL (6.0-8.5) Albumin 4.2 g/dL g/dL (3.0-5.5) - Radiology Radiology Impressions: none ordered - Orders Orders: ED Orders Category Date Time Status Place IV Lock 1T Care 05/13/17 20:57 Active CBC/PLATELET/DIFF Routine Lab 05/13/17 22:25 Completed CMP Routine Lab 05/13/17 22:25 Completed URINALYSIS Routine Lab 05/13/17 20:56 Ordered 0.9 % Sodium Chloride [Normal Saline] 1,000 ml Med 05/13/17 21:00 Discontinued IV .Q1H 0.9 % Sodium Chloride [Normal Saline] 1,000 ml Med 05/13/17 21:27 Discontinued IV .STK-MED Budesonide [Pulmicort] Med 05/13/17 22:42 Discontinued 0.5 mg NEB .STK-MED ONE Budesonide [Pulmicort] Med 05/13/17 21:00 Discontinued 0.5 mg NEB BID Ipratropium/Albuterol Sulfate [Duoneb] Med 05/13/17 20:57 Discontinued 3 ml NEB NOW ONE Ketorolac Tromethamine [Toradol] Med 05/13/17 20:57 Discontinued 30 mg IVP NOW ONE Headache Physical Exam - EXAM General Appearance: no acute distress EENT: no facial swelling, eyes nml inspection, PERRL, tender temporal artery, pain over sinuses Neck: normal inspection, thyroid normal, supple Respiratory: no resp distress, chest non-tender, breath sounds normal CVS: reg. rate & rhythm, heart sounds nml Abdomen: non-tender, no organomegaly, nml bowel sounds, no distention Skin: color nml, no rash Extremitites: non-tender, normal range of motion, no evidence of injury, no edema - NEURO/PSYCH Higher Functions: alert, oriented x3, nml speech, mood/affect nml Cranial: nml as tested, no evidence of acute CVA Cerebellar: nml as tested, nml gait Sensorimotor: motor nml, sensation nml Discharge Clincal Impression: Cephalgia Qualifiers: Headache type: tension-type Headache chronicity pattern: acute headache Intractability: intractable Qualified Code(s): G44.201 - Tension-type headache, unspecified, intractable Referrals: Jese Moreno [Primary Care Provider] - 2 Days Home Medications: Ambulatory Orders Ramipril [Altace] 10 mg PO BID 11/18/16 Ibuprofen [Advil] 800 mg PO TID 04/11/17 Comments: Discharged home with precription for Meloxicam 7.5 mg 1 p.o. bid prn headache Condition: Stable Disposition: 01 HOME, SELF-CARE Decision to Admit: NO Decision Time: 22:54
[2017-05-13 22:54] LABS: eGFR (African) > 60; eGFR (Non-African) > 60
[2017-05-14 00:54] VITALS: BP 132/88
== END 2017-05-13 23:00 | disposition home or self-care (01) ==
LOC: ED 20:02
DX: G44.201 Tension-type headache, unspecified, intractable (principal)
CPT/HCPCS: 80053; 85025; J1885; J7030; J7626; 96361; 96374; 99283; S1016

== ENCOUNTER 2017-05-31 19:22 | Emergency (ER) | payer OTHER ==
--- NOTE | 2017-05-31 19:38 | ED Physician Documentation ---
General Adult - HISTORIAN Historian: patient - HPI Chief Complaint: General Adult Onset: days ago Timing: still present Further Comments: yes (Patient slept 12 hours last night, gets hot and sweaty. Has been in [facility] for COPD, discharged about one week ago. No cough, no chest pain, no nausea vomiting or diarrhea, no urinary problems. Has been having some muscle aches.) Last known Well Date: 05/30/17 Last Known Well Time: 09:00 - ROS CONST: fever (?), chills (?) EYES/ENT: denies: sore throat CVS/RESP: none. denies: chest pain, shortness of breath, cough GI/: denies: abdominal pain, problems urinating, vomiting, nausea, diarrhea, black stools - PAST HX Past History: COPD, hypertension Other History: none Surgeries/Procedures: none Immunizations: influenza, pneumovax Allergies/Adverse Reactions: Allergies Allergy/AdvReac Type Severity Reaction Status Date / Time morphine Allergy Severe Anaphylaxis Verified 04/29/17 17:45 Home Medications: Ambulatory Orders Medication Instructions Recorded Ramipril [Altace] 10 mg PO BID 11/18/16 Ibuprofen [Advil] 800 mg PO TID 04/11/17 - SOCIAL HX Smoking History: non-smoker Alcohol Use: none Drug Use: none - FAMILY HX Family History: No - VITAL SIGNS Vital Signs: Vital Signs Temp Pulse Resp BP Pulse Ox 132/88 05/13/17 23:00 - REVIEWED ASSESSMENTS Nursing Assessment Reviewed: Yes Vitals Reviewed: Yes General Adult Physical Exam - PHYSICAL EXAM GENERAL APPEARANCE: mild distress EENT: eye inspection normal, ENT inspection normal, pharynx normal (small oral phyarngeal airway). No: exudate, dry mucous membranes NECK: normal inspection, thyroid normal, supple. No: lymphadenopathy, stiff neck RESPIRATORY: no resp distress, chest non-tender, breath sounds normal. No: wheezes, rales, rhonchi CVS: reg rate & rhythm, heart sounds normal, equal pulses, no murmur, no gallop ABDOMEN: soft, no organomegaly, normal bowel sounds, no abdominal bruit, no distension, non-tender. No: hepatomegaly SKIN: warm/dry, normal color EXTREMITIES: non-tender, normal range of motion NEURO: oriented X3, CN's nml as tested, mood/affect nml, cognition normal Discharge Clincal Impression: Fatigue Qualifiers: Fatigue type: unspecified Qualified Code(s): R53.83 - Other fatigue Referrals: Jese Moreno [Primary Care Provider] - 2 Days Additional Instructions: Drink a lot of water, if your symptoms do not improve to follow up with Dr Foss. Home Medications: Ambulatory Orders Ramipril [Altace] 10 mg PO BID 11/18/16 Ibuprofen [Advil] 800 mg PO TID 04/11/17 Condition: Stable Disposition: 01 HOME, SELF-CARE Decision to Admit: NO Date of Decison to Admit: 05/31/17 Decision Time: 20:52
[2017-05-31 20:16] LABS: BASOPHILS % 0.7 (0.0-1.5); EOSINOPHILS % 2.1 % (0.0-6.8); MEAN CORPUSCULAR HEMOGLOBIN 29.4 pg (28.0-34.0); MEAN CORPUSCULAR VOLUME 86.3 fl (80.0-100.0); MONOCYTES % 7.4 % (0.0-11.0); NEUTROPHILS # 5.4 # k/uL (1.4-7.7)
[2017-05-31 20:28] LABS: eGFR (African) > 60; eGFR (Non-African) > 60
[2017-05-31 21:27] VITALS: BP 139/84
[2017-06-01 05:28] LABS: APPEARANCE,URINE CLEAR (CLEAR); COLOR,URINE YELLOW (YELLOW); OCCULT BLOOD,URINE TRACE-INTACT (NEGATIVE); PH URINE 6.5 (5.0 - 8.0); UROBILINOGEN URINE 0.2 Eu (0.2-1.0)
== END 2017-05-31 21:10 | disposition home or self-care (01) ==
LOC: ED 19:22
DX: R53.83 Other fatigue (principal)
CPT/HCPCS: 80053; 81002; 85025; 87400; 99283

== ENCOUNTER 2017-06-03 21:48 | Emergency (ER) | payer OTHER ==
[2017-06-03] MEDS ORDERED: IPRATROPIUM/ALBUTEROL SULFATE 3 ML AMPUL.NEB NEB ONE (21:52)
[2017-06-03] MEDS: IPRATROPIUM/ALBUTEROL SULFATE 3 ML AMPUL.NEB NEB ONE ×3 (22:05→23:15)
[2017-06-03] MEDS ORDERED: BUDESONIDE 0.5MG/2ML AMPUL.NEB NEB ONE (22:17)
[2017-06-03] MEDS ORDERED: methylPREDNISolone SOD SUCC 40 MG/ML VIAL ONE (22:18)
[2017-06-03] MEDS: BUDESONIDE 0.5MG/2ML AMPUL.NEB NEB ONE (22:20)
[2017-06-03] MEDS: methylPREDNISolone SOD SUCC 40 MG/ML VIAL IM ONE (22:20)
[2017-06-03 23:17] LABS: BASOPHILS % 0.6 (0.0-1.5); EOSINOPHILS % 2.6 % (0.0-6.8); MEAN CORPUSCULAR HEMOGLOBIN 28.5 pg (28.0-34.0); MEAN CORPUSCULAR VOLUME 86.2 fl (80.0-100.0); MONOCYTES % 8.4 % (0.0-11.0)
[2017-06-03] MEDS ORDERED: ALBUTEROL SULFATE 2.5 MG/3 ML AMPUL.NEB NEB ONE (23:58)
[2017-06-04] MEDS: ALBUTEROL SULFATE 2.5 MG/3 ML AMPUL.NEB NEB ONE
[2017-06-04 00:01] LABS: eGFR (African) > 60; eGFR (Non-African) > 60
--- NOTE | 2017-06-04 00:17 | ED Physician Documentation ---
Asthma - HISTORIAN Historian: patient - HPI Stated Complaint: wheezing Chief Complaint: Asthma Additional Information: frequent episodes ac asthma-took neb at home still wheezing Onset: hours (3) Duration: continues in ED, worse Initiating Event: denies: upper respiratory illness, out of meds, sports, exercise Associated Symptoms:: trouble breathing, shortness of breath, chest tightness. denies: productive cough Current Asthma Therapy: inhaled nebulizer, inhaled MDI, steroid - ROS CONST: no problems CVS: denies: heart racing, palpitations GI/: none MS/SKIN/LYMPH: denies: ankle swelling, leg pain NEURO/PSYCH: denies: headache, dizziness, tingling hands - PAST HX Asthma: frequent attacks Lung Disease: asthma, COPD, other (htn) Surgeries/Procedures: none Allergies/Adverse Reactions: Allergies Allergy/AdvReac Type Severity Reaction Status Date / Time morphine Allergy Severe Anaphylaxis Verified 06/03/17 22:02 Home Medications: Ambulatory Orders Medication Instructions Recorded Ramipril [Altace] 10 mg PO BID 11/18/16 - SOCIAL HX Smoking History: non-smoker Alcohol Use: none Drug Use: none - FAMILY HX Family History: asthma - VITAL SIGNS Vital Signs: Vital Signs Temp Pulse Resp BP Pulse Ox 98.5 F 117 H 22 154/86 99 06/03/17 21:50 06/03/17 21:50 06/03/17 21:50 06/03/17 21:50 06/04/17 00:00 - REVIEWED ASSESSMENTS Nursing Assessment Reviewed: Yes Vitals Reviewed: Yes ED Results Lab/Radiology - Lab Results Lab Results: Lab Results 06/03/17 06/03/17 23:36 23:12 WBC 12.20 K/ul H K/ul (4.00-12.00) RBC 5.14 M/ul M/ul (3.90-5.20) Hgb 14.6 g/dL g/dL (12.0-16.0) Hct 44.3 % % (34.5-46.5) MCV 86.2 fl fl (80.0-100.0) MCH 28.5 pg pg (28.0-34.0) MCHC 33.1 g/dL g/dL (30.0-36.0) RDW 12.9 % % (11.3-14.3) Plt Count 235 K/mm3 K/mm3 (130-400) Neut % (Auto) 49.3 % % (39.0-79.0) Lymph % (Auto) 37.1 % % (16.0-50.0) [place] % (Auto) 8.4 % % (0.0-11.0) Eos % (Auto) 2.6 % % (0.0-6.8) Baso % (Auto) 0.6 (0.0-1.5) Neut # (Auto) 6.0 # k/uL # k/uL (1.4-7.7) Lymph # (Auto) 4.5 # k/uL H # k/uL (0.6-4.0) [place] # (Auto) 1.0 # k/uL H # k/uL (0.0-0.9) Eos # (Auto) 0.3 # k/uL # k/uL (0.0-0.6) Baso # (Auto) 0.1 # k/uL # k/uL (0.0-0.5) Reactive Lymphs % 2.0 % % (0.0-5.0) Reactive Lymphs # 0.2 # k/uL # k/uL (0.0-0.8) Sodium 135 mmol/L L mmol/L (136-145) Potassium 3.2 mmol/L L mmol/L (3.5-5.0) Chloride 95 mmol/L L mmol/L (98-110) Carbon Dioxide 30 mmol/L mmol/L (20-32) BUN 15 mg/dL mg/dL (10-26) Creatinine 0.7 mg/dL mg/dL (0.4-1.5) Estimated Creat Clear 175 Est GFR ( Amer) > 60 (60 - ) Est GFR (Non-Af Amer) > 60 (60 - ) Glucose 130 mg/dL H mg/dL (70-99) Calcium 10.2 mg/dL mg/dL (8.5-10.5) Total Bilirubin 0.2 mg/dL mg/dL (0.2-1.2) AST 23 U/L U/L (0-41) ALT 24 U/L U/L (0-45) Alkaline Phosphatase 96 U/L U/L (46-116) Total Protein 7.8 g/dL g/dL (6.0-8.5) Albumin 4.8 g/dL g/dL (3.0-5.5) - Orders Orders: ED Orders Category Date Time Status Assess pulse oximetry Q1H Care 06/03/17 22:44 Active CHEST P.A.&LAT 2 VIEWS [RAD] Stat Exams 06/03/17 Taken CBC/PLATELET/DIFF Routine Lab 06/03/17 23:12 Completed CMP Routine Lab 06/03/17 23:36 Completed Albuterol Sulfate [Ventolin] Med 06/03/17 23:58 Discontinued 2.5 mg NEB .STK-MED ONE Albuterol Sulfate [Ventolin] Med 06/03/17 23:59 Discontinued 2.5 mg NEB NOW ONE Budesonide [Pulmicort] Med 06/03/17 22:17 Discontinued 0.5 mg NEB .STK-MED ONE Budesonide [Pulmicort] Med 06/04/17 22:20 Once 0.5 mg NEB BID ONE Ipratropium/Albuterol Sulfate [Duoneb] Med 06/03/17 21:52 Discontinued 3 ml NEB .STK-MED ONE Ipratropium/Albuterol Sulfate [Duoneb] Med 06/03/17 22:05 Discontinued 3 ml NEB NOW ONE Ipratropium/Albuterol Sulfate [Duoneb] Med 06/03/17 22:29 Discontinued 3 ml NEB NOW ONE Ipratropium/Albuterol Sulfate [Duoneb] Med 06/03/17 22:44 Discontinued 3 ml NEB NOW ONE methylPREDNISolone SOD SUCC [Solu-MEDROL] Med 06/03/17 22:18 Discontinued 80 mg .ROUTE .STK-MED ONE methylPREDNISolone SOD SUCC [Solu-MEDROL] Med 06/04/17 22:20 Once 80 mg IM Q8 ONE EKG WITH COMPARISON Stat Ther 06/03/17 Ordered EKG WITH COMPARISON Stat Ther 06/03/17 Ordered Asthma Physical Exam - EXAM General Appearance: moderate distress EENT: eye inspection normal Neck: nml inspection Respiratory: speaks full sentences, prolonged expirations, accessory muscle use , decreased air movement, wheezes, rales, rhonchi. No: retractions, stridor, resp. fatigue CVS: reg rate & rhythm, heart sounds normal Abdomen: non-tender, no distention Skin: color nml. No: cyanosis, diaphoresis, pallor, ecchymosis Extremities: non-tender, normal range of motion Neuro/Psych: oriented x3, neuro intact, mood/affect nml Discharge Clincal Impression: acute exaberation copd, asthma Referrals: Jese Moreno [Primary Care Provider] - 2 Days Home Medications: Ambulatory Orders Ramipril [Altace] 10 mg PO BID 11/18/16 Comments: sig improved amb w/o difficulty Condition: Good Disposition: 01 HOME, SELF-CARE Decision to Admit: NO Decision Time: 00:20
[2017-06-04 00:49] VITALS: BP 136/88
--- NOTE | 2017-06-04 03:55 | Diagnostic Imaging Report ---
MARGY GUERRERO~ [facility] [address] [address] ~ ~ ~ ~ Report Submission Date: Jun 03, 2017 11:45:00 PM CDT Patient ~ Study Name: JAN MODI ~ Date: Jun 03, 2017 11:19:54 PM CDT ~ Modality Type: CR Gender: F ~ Description: CHEST : 53 ~ Institution: [facility] Physician: MARGY GUERRERO ~ ~ ~ ~ Chest 2 views History: Shortness of breath Findings: Obesity and scattered calcified granulomas are observed. The lungs are well expanded without infiltrate or pleural effusion. Heart size and pulmonary vascularity are normal. Impression: No acute abnormality. ~ Electronically signed on Jun 03, 2017 11:45:00 PM CDT by: Jossue MEDINA
== END 2017-06-04 00:30 | disposition home or self-care (01) ==
LOC: ED 21:48
DX: J44.1 Chronic obstructive pulmonary disease with (acute) exacerbation (principal); J45.909 Unspecified asthma, uncomplicated
CPT/HCPCS: 71020; 80053; 85025; J2920; J7626; 96372; 99283; J1030; S1016

== ENCOUNTER 2018-01-22 02:23 | Emergency (ER) | payer OTHER ==
[2018-01-22 02:26] VITALS: BP 152/74
[2018-01-22] MEDS ORDERED: KETOROLAC TROMETHAMINE 60 MG/2 ML VIAL IM ONE (02:48)
[2018-01-22] MEDS ORDERED: ORPHENADRINE CITRATE 60 MG/2ML IM ONE (02:48)
--- NOTE | 2018-01-22 03:04 | ED Physician Documentation ---
General Adult - HISTORIAN Historian: patient - HPI Stated Complaint: Bilat flank pain Chief Complaint: General Adult Additional Information: Pain began yesterday morning and is constant, but waxes and wanes. Radiates into thighs. Walking makes it worse. Took tylenol twice w/o relief; last dose last evening. Never had this pain before. Has been urinating more frequently since this pain began. No fever, No other associated signs or modifying factors. - ROS CONST: denies: fever NEURO/PSYCH: other (no l;oss bowel or bladder control, no paralysis or weakness) . denies: tingling, numbness - PAST HX Past History: hypertension Allergies/Adverse Reactions: Allergies Allergy/AdvReac Type Severity Reaction Status Date / Time morphine Allergy Severe Anaphylaxis Verified 01/22/18 02:32 Home Medications: Ambulatory Orders Medication Instructions Recorded Ramipril [Altace] 10 mg PO BID 11/18/16 - SOCIAL HX Smoking History: non-smoker, chew - FAMILY HX Family History: No - VITAL SIGNS Vital Signs: Vital Signs Temp Pulse Resp BP Pulse Ox 96.6 F L 113 H 16 152/74 98 01/22/18 02:24 01/22/18 02:24 01/22/18 02:24 01/22/18 02:24 01/22/18 02:24 - REVIEWED ASSESSMENTS Nursing Assessment Reviewed: Yes Vitals Reviewed: Yes Progress - Progress Progress: Name: JAN MODI Date: Jan 22, 2018 3:43:00 AM CDT Modality Type: CT\SR Gender: F Description: CT ABD PELVIS W/O CO : 53 Institution: [facility] Physician: LULA SALAS - MARLEE CT abdomen and pelvis without contrast Clinical history: LOW BACK AND FLANK PAIN Technique: CT of the abdomen and pelvis was performed without oral or intravenous administration of contrast. Sagittal and coronal reconstructions are performed by the technologist. Findings: Minimal dependent atelectasis in the lung bases. Mild prominence of bronchi in the lower lobes consistent with bibasilar bronchitis. Liver is diffusely hypodense consistent with hepatic steatosis. There is no focal abnormality in the liver or spleen. Multiple calcified granulomata in the spleen. There is no pancreatic or adrenal abnormality. There are intrarenal calculi the right kidney. There is no hydronephrosis or perinephric stranding and no evidence of bladder or ureteral calculus. Appendix is visualized and is within normal limits. Structures related to the gastrointestinal tract are unremarkable. Uterus and adnexal structures are within normal limits. Spondylosis and scoliosis are evident in the lumbar vertebrae. Impression: 1. Bibasilar bronchitis. 2. Hepatic steatosis. 3. Lumbar spondylosis and scoliosis. 4. Negative appendix. Electronically signed on Jan 22, 2018 4:14:26 AM CDT by: Vijay Pan Feels better after meds. ED Results Lab/Radiology - Orders Orders: ED Orders Category Date Time Status LUMBAR SPINE XR 2 OR 3 VIEWS [L SPINE 2 OR 3 VIEWS] [ Exams 01/22/18 Ordered RAD] Stat CBC/PLATELET/DIFF Routine Lab 01/22/18 Ordered CMP Routine Lab 01/22/18 Ordered URINALYSIS Routine Lab 01/22/18 Ordered Ketorolac Tromethamine [Toradol] Med 01/22/18 02:48 Discontinued 60 mg IM NOW ONE Orphenadrine Citrate [Norflex] Med 01/22/18 02:48 Discontinued 60 mg IM NOW ONE General Adult Physical Exam - PHYSICAL EXAM GENERAL APPEARANCE: moderate distress EENT: eye inspection normal, other (very poor dentition) NECK: normal inspection, supple RESPIRATORY: breath sounds normal CVS: reg rate & rhythm, heart sounds normal ABDOMEN: soft, normal bowel sounds BACK: normal inspection, no CVA tenderness, other (no vertebral tenderness. Tender to palpation yon lumbar paraspinous muscles, L>R. ) SKIN: warm/dry EXTREMITIES: normal range of motion, no evidence of injury, no edema NEURO: CN's nml as tested, motor nml, sensation nml, other (yon SLR to 80 degrees causes knee pain) Discharge Clincal Impression: Bronchitis Acute lumbar myofascial strain Qualifiers: Encounter type: initial encounter Qualified Code(s): S39.012A - Strain of muscle, fascia and tendon of lower back, initial encounter Urinary tract infection Qualifiers: Urinary tract infection type: acute cystitis Hematuria presence: with hematuria Qualified Code(s): N30.01 - Acute cystitis with hematuria Referrals: Jese Moreno [Primary Care Provider] - 2 Days Additional Instructions: Drink plenty of water. Avoid all smoke. Ice or gentle heat to the sore areas of your back at least 4 times a day for a week. Condition: Good Disposition: 01 HOME, SELF-CARE Decision to Admit: NO Decision Time: 04:20
[2018-01-22 03:23] LABS: BASOPHILS % 0.6 (0.0-1.5); EOSINOPHILS % 3.1 % (0.0-6.8); MEAN CORPUSCULAR VOLUME 88.9 fl (80.0-100.0); MONOCYTES % 8.1 % (0.0-11.0); NEUTROPHILS # 3.7 # k/uL (1.4-7.7)
[2018-01-22 04:06] LABS: eGFR (African) > 60; eGFR (Non-African) > 60
--- NOTE | 2018-01-22 04:18 | Diagnostic Imaging Report ---
LULA SALAS [facility] [address] [facility] [address] [place] [address]. [id number] Report Submission Date: Jan 22, 2018 4:14:26 AM CDT Patient Study Name: JAN MODI Date: Jan 22, 2018 3:43:00 AM CDT Modality Type: CT\SR Gender: F Description: CT ABD PELVIS W/O CO : 53 Institution: [facility] Physician: LULA SALAS CT abdomen and pelvis without contrast Clinical history: LOW BACK AND FLANK PAIN Technique: CT of the abdomen and pelvis was performed without oral or intravenous administration of contrast. Sagittal and coronal reconstructions are performed by the technologist. Findings: Minimal dependent atelectasis in the lung bases. Mild prominence of bronchi in the lower lobes consistent with bibasilar bronchitis. Liver is diffusely hypodense consistent with hepatic steatosis. There is no focal abnormality in the liver or spleen. Multiple calcified granulomata in the spleen. There is no pancreatic or adrenal abnormality. There are intrarenal calculi the right kidney. There is no hydronephrosis or perinephric stranding and no evidence of bladder or ureteral calculus. Appendix is visualized and is within normal limits. Structures related to the gastrointestinal tract are unremarkable. Uterus and adnexal structures are within normal limits. Spondylosis and scoliosis are evident in the lumbar vertebrae. Impression: 1. Bibasilar bronchitis. 2. Hepatic steatosis. 3. Lumbar spondylosis and scoliosis. 4. Negative appendix. Electronically signed on Jan 22, 2018 4:14:26 AM CDT by: Vijay MEDINA
[2018-01-22] MEDS ORDERED: AZITHROMYCIN 250 MG TABLET PO ONE (04:30)
[2018-01-22] MEDS ORDERED: NITROFURANTOIN 100 MG CAPSULE PO ONE (04:31)
[2018-01-22] MEDS ORDERED: CYCLOBENZAPRINE HCL 5 MG TABLET PO ONE (04:32)
[2018-01-22] MEDS ORDERED: CYCLOBENZAPRINE HCL 5 MG TABLET ONE (04:34)
[2018-01-22 07:05] LABS: APPEARANCE,URINE CLEAR (CLEAR); COLOR,URINE YELLOW (YELLOW); OCCULT BLOOD,URINE TRACE-INTACT (NEGATIVE); UROBILINOGEN URINE 0.2 Eu (0.2-1.0)
== END 2018-01-22 04:44 | disposition home or self-care (01) ==
LOC: ED 02:23
DX: S39.012A Strain of muscle, fascia and tendon of lower back, initial encounter (principal); J40 Bronchitis, not specified as acute or chronic; K76.0 Fatty (change of) liver, not elsewhere classified; M47.816 Spondylosis without myelopathy or radiculopathy, lumbar region; M41.9 Scoliosis, unspecified; N30.01 Acute cystitis with hematuria; I10 Essential (primary) hypertension; X58.XXXA Exposure to other specified factors, initial encounter; Y92.9 Unspecified place or not applicable; Y93.9 Activity, unspecified
CPT/HCPCS: 74176; 80053; 81002; 85025; J1885; J2360; 96372; 99283

== ENCOUNTER 2018-02-04 20:38 | Emergency (ER) | payer SELFPAY ==
--- NOTE | 2018-02-04 20:52 | ED Physician Documentation ---
General Adult - HISTORIAN Historian: patient, child - HPI Stated Complaint: legs swollen Chief Complaint: General Adult Additional Information: Legs swollen and it hurts to walk on her feet. She began naprosyn 500 mg bid on 02/01, for hip pain. - ROS CONST: no problems CVS/RESP: none. denies: shortness of breath - PAST HX Past History: hypertension, other (skin cancer) Allergies/Adverse Reactions: Allergies Allergy/AdvReac Type Severity Reaction Status Date / Time morphine Allergy Severe Anaphylaxis Verified 01/22/18 02:32 Home Medications: Ambulatory Orders Medication Instructions Recorded Ramipril [Altace] 10 mg PO BID 11/18/16 Acetaminophen [Extra Strength 1,000 mg PO Q8H PRN #100 tablet 01/22/18 Non-Aspirin] Azithromycin [Zithromax] 250 mg PO DAILY #4 tablet 01/22/18 Ibuprofen [Motrin Ib] 600 mg PO Q8H PRN #60 tablet 01/22/18 Nitrofurantoin Monohyd/M-Cryst 100 mg PO BID #14 capsule 01/22/18 [Macrobid] - SOCIAL HX Smoking History: secondhand - FAMILY HX Family History: No - VITAL SIGNS Vital Signs: Vital Signs Temp Pulse Resp BP Pulse Ox 152/74 01/22/18 04:44 - REVIEWED ASSESSMENTS Nursing Assessment Reviewed: Yes Vitals Reviewed: Yes General Adult Physical Exam - PHYSICAL EXAM GENERAL APPEARANCE: obese EENT: eye inspection normal NECK: normal inspection, supple RESPIRATORY: no resp distress, breath sounds normal CVS: reg rate & rhythm, heart sounds normal ABDOMEN: soft BACK: normal inspection SKIN: warm/dry, normal color (except lower legs with erythema (has been in sun, she says)) EXTREMITIES: normal range of motion, no evidence of injury, edema (yon ankles with non pitting edema, R>L) NEURO: CN's nml as tested, motor nml, sensation nml Discharge Clincal Impression: Ankle edema, bilateral Referrals: Jese Moreno [Primary Care Provider] - 2 Days Additional Instructions: Stop the naprosyn. You can take 1000 mg of tylenol as often as every 8 hours if needed for discomfort. Condition: Good Disposition: 01 HOME, SELF-CARE Decision to Admit: NO Decision Time: 10:55
[2018-02-05 00:28] VITALS: BP 155/85
== END 2018-02-04 21:06 | disposition home or self-care (01) ==
LOC: ED 20:38
DX: R60.0 Localized edema (principal)
CPT/HCPCS: 99282

== ENCOUNTER 2018-02-10 23:34 | Emergency (ER) | payer SELFPAY ==
--- NOTE | 2018-02-11 01:15 | Diagnostic Imaging Report ---
ANTONY BOSWELL [facility] [address] [facility].[address] [address] Report Submission Date: February 11, 2018 12:42:57 AM CDT Patient Study Name: JAN MODI Date: February 11, 2018 12:13:29 AM CDT Modality Type: DX Gender: F Description: SHOULDER : 53 Institution: [facility] Physician: ANTONY BOSWELL 3 views of the right shoulder Clinical history: PAIN WITH NO KNOWN INJURY X 2 DAYS Findings: Examination right shoulder in multiple views fails to demonstrate evidence of fracture, dislocation or other bone or joint pathology. Electronically signed on February 11, 2018 12:42:57 AM CDT by: Vijay MEDINA
--- NOTE | 2018-02-11 01:25 | ED Physician Documentation ---
Shoulder Injury/Pain - HISTORIAN Historian: patient - HPI Stated Complaint: right shoulder pain Chief Complaint: Shoulder Injury/ Pain Additional Information: right upper arm pain started today Onset: today Where: home Severity: moderate Pain: persistent Context: other (no known injury, son said he came home and she was sleeping on that arm) Further Comments: no - ROS CONST: no problems CVS/RESP: none GI/: nausea MS/SKIN/LYMPH: other (right upper arm pain) NEURO: none - PAST HX Past History: other (htn) Immunizations: referred to PCP Allergies/Adverse Reactions: Allergies Allergy/AdvReac Type Severity Reaction Status Date / Time morphine Allergy Severe Anaphylaxis Verified 02/10/18 23:42 Home Medications: Ambulatory Orders Medication Instructions Recorded Ramipril [Altace] 10 mg PO BID 11/18/16 - SOCIAL HX Smoking History: chew Alcohol Use: none Drug Use: none - FAMILY HX Family History: no significant history - VITAL SIGNS Vital Signs: Vital Signs Temp Pulse Resp BP Pulse Ox 98.2 F 76 16 178/87 97 02/10/18 23:43 02/10/18 23:43 02/10/18 23:43 02/10/18 23:43 02/10/18 23:43 - REVIEWED ASSESSMENT Nursing Assessment Reviewed: Yes Vitals Reviewed: Yes Progress - Results/Orders Results/Orders: x-ray right shoulder ordered - Progress Progress: pt. stable entire time in ER Critical Care Note - Critical Care Note Total Time (mins): 0 ED Results Lab/Radiology - Lab Results Lab Results: none ordered - Radiology Radiology Impressions: x-ray right shoulder - Orders Orders: ED Orders Category Date Time Status SHOULDER 2 VIEWS OR MORE [RAD] Stat Exams 02/10/18 Completed Shoulder Injury Physical Exam - Physical Exam General Appearance: no acute distress Shoulder: no acute distress, full ROM, soft-tissue tenderness (deltod, biceps, triceps). No: bony tenderness, swelling Upper Extremity: no injury below shoulder, soft-tissue tenderness Neuro: sensation nml, motor nml Vascular: no vascular compromise, motor nml, sensation nml Skin: warm/dry, normal color Head/ENT: nml inspection, pharynx nml Respiratory: chest non-tender, no ecchymosis, breath sounds nml, no resp. distress, heart sounds nml CVS: reg rate & rhythm, heart sounds normal, equal pulses, no murmur, no gallop Abdomen: soft, no organomegaly, normal bowel sounds, no abdominal bruit, no distension Discharge Clincal Impression: Bursitis Qualifiers: Bursitis location: shoulder Laterality: right Qualified Code(s): M75.51 - Bursitis of right shoulder Referrals: Jese Moreno [Primary Care Provider] - 2 Days Comments: Discharged in stable condition with script for Meloxicam 7.5 mg #20 1 p.o. bid Condition: Stable Disposition: 01 HOME, SELF-CARE Decision to Admit: NO Decision Time: 01:24
[2018-02-11 01:28] VITALS: BP 126/74
== END 2018-02-11 01:25 | disposition home or self-care (01) ==
LOC: ED 23:34
DX: M75.51 Bursitis of right shoulder (principal)
CPT/HCPCS: 73030; 99283

== ENCOUNTER 2018-04-01 00:24 | Emergency (ER) | payer SELFPAY ==
--- NOTE | 2018-04-01 00:32 | ED Physician Documentation ---
General Adult - HISTORIAN Historian: patient - HPI Stated Complaint: swelling in ankles Chief Complaint: Lower Extremity Problem Onset: other (2 weeks ) Timing: still present Severity: mild Further Comments: yes (she states for two weeks now she has had some increased swelling in her lower legs/ankles. She states she did ride from [place] in last day and has had increased swelling. She has no other complaints. No chest pain. No shortness of breath. No injury . She does not drink fluids well) Last known Well Code/Unknown Code: Unknown - ROS CONST: no problems EYES/ENT: none CVS/RESP: denies: chest pain, shortness of breath GI/: denies: abdominal pain, problems urinating, vomiting, nausea, diarrhea MS/SKIN/LYMPH: ankle swelling. denies: rash NEURO/PSYCH: denies: headache, fainting, dizziness - PAST HX Past History: none Other History: none Surgeries/Procedures: none Immunizations: UTD Allergies/Adverse Reactions: Allergies Allergy/AdvReac Type Severity Reaction Status Date / Time morphine Allergy Severe Anaphylaxis Verified 02/10/18 23:42 Home Medications: Ambulatory Orders Medication Instructions Recorded Ramipril [Altace] 10 mg PO BID 11/18/16 - SOCIAL HX Smoking History: chew Alcohol Use: none Drug Use: none - FAMILY HX Family History: No - VITAL SIGNS Vital Signs: Vital Signs Temp Pulse Resp BP Pulse Ox 126/74 02/11/18 01:25 - REVIEWED ASSESSMENTS Nursing Assessment Reviewed: Yes Vitals Reviewed: Yes General Adult Physical Exam - PHYSICAL EXAM GENERAL APPEARANCE: no distress EENT: eye inspection normal, ENT inspection normal, JYOTHI RESPIRATORY: no resp distress, chest non-tender, breath sounds normal CVS: reg rate & rhythm, heart sounds normal, equal pulses, no murmur ABDOMEN: soft, normal bowel sounds, no distension, non-tender BACK: normal inspection, no CVA tenderness SKIN: warm/dry EXTREMITIES: non-tender, normal range of motion, no evidence of injury, edema ( mild edema in bilateral ankles. ) NEURO: oriented X3, CN's nml as tested, motor nml, sensation nml, mood/affect nml, cognition normal Discharge Clincal Impression: Ankle edema, bilateral Referrals: Jese Moreno [Primary Care Provider] - 2 Days Additional Instructions: 1. elevate feet 2. Increase fluids 3. See PCP in 2-4 days 4. Return to ER for any concerns Condition: Stable Disposition: 01 HOME, SELF-CARE Decision to Admit: NO Date of Decison to Admit: 04/01/18 Decision Time: 00:45
[2018-04-01 01:05] VITALS: BP 149/86
== END 2018-04-01 00:57 | disposition home or self-care (01) ==
LOC: ED 00:24
DX: R60.0 Localized edema (principal)
CPT/HCPCS: 99282